=== PATIENT | female | born 1985 | race African-American/Black ===

== ENCOUNTER 2019-03-29 21:14 | Emergency (ER) | payer SELFPAY ==
[~2019-03-29] VITALS: Ht 154.9 cm; Wt 63.5 kg
--- NOTE | 2019-03-29 21:25 | NUR ---
PT MICHELLE BLS. TAKEN TO BED 6
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
[2019-03-29 21:45] VITALS: BP 137/99
--- NOTE | 2019-03-29 21:50 | NUR ---
PHLEB AT BEDSIDE FOR LAB DRAW.
--- NOTE | 2019-03-29 21:52 | NUR ---
Dr. Guidry examining patient.
[2019-03-29 22:10] LABS: BASOPHILS % (AUTO) 0.5 % (0.0-2.0); EOSINOPHILS # (AUTO) 0.1 K/uL (0-0.4); EOSINOPHILS % (AUTO) 1.4 % (0.0-4.0); HEMATOCRIT 40.1 % (36-48); HEMOGLOBIN 13.3 g/dL (12.0-16.0); LYMPHOCYTES # (AUTO) 0.8 K/uL (2.5-16.5); MEAN CORPUSCULAR HEMOGLOBIN 29 pg (27-31); MEAN CORPUSCULAR HGB CONC 33 g/dL (33-37); MEAN CORPUSCULAR VOLUME 87.6 fL (80-94); MONOCYTES # (AUTO) 0.3 K/uL (0.8-1.0); MONOCYTES % (AUTO) 2.8 % (1.7-9.3); NEUTROPHILS % (AUTO) 86.3 % (42.2-75.2); PLATELET COUNT (AUTO) 271 K/uL (140-450); RED BLOOD CELL COUNT(AUTO) 4.57 MIL/uL (4.20-5.40); RED CELL DISTRIBUTION WIDTH 13.9 % (11.6-13.7); WHITE BLOOD COUNT (AUTO) 9.3 K/uL (4.8-10.8)
--- NOTE | 2019-03-29 22:27 | NUR ---
X-Ray at bedside.
--- NOTE | 2019-03-29 22:40 | NUR ---
PT LYING IN BED EYES CLOSED. RESPIRATIONS ARE EVEN AND UNLABORED. SKIN IS DRY AND HOT TO TOUCH. PT REPONSIVE TO PAIN STIMULI. VSS. PT DENIES PAIN. BED LOCKED AND IN LOWEST POSITION. SIDE RAIL UP.
[2019-03-29 22:43] LABS: ALBUMIN 3.1 g/dL (3.4-5.0); ASPARTATE AMINOTRANSFERASE 20 U/L (15-37); CARBON DIOXIDE 24.9 mmol/L (21-32); CHLORIDE 103 mmol/L (98-107); CREATININE 0.7 mg/dL (0.6-1.3); GFR ARICAN-AMERICAN 124 mL/min (>90); GLUCOSE 110 mg/dL (74-106); POTASSIUM 3.9 mmol/L (3.5-5.1); SODIUM SERUM 136 mmol/L (136-145); TOTAL BILIRUBIN 0.5 mg/dL (0.0-1.0); UREA NITROGEN, BLOOD 15 mg/dL (7-18)
[2019-03-29 22:49] LABS: APPEARANCE,URINE CLEAR (CLEAR); BILIRUBIN,URINE NEGATIVE (NEGATIVE); BLOOD, URINE NEGATIVE (NEGATIVE); COLOR,URINE YELLOW (YELLOW); LEUKOCYTE ESTERASE ,URINE TRACE (NEGATIVE); NITRITE, URINE NEGATIVE (NEGATIVE); UGLUCOSE NEGATIVE (NEGATIVE)
[2019-03-29 22:52] LABS: ACETAMINOPHEN < 0.5 ug/ml (10-30); SALICYLATE < 2.8 mg/dL (2.8-20.0)
[2019-03-29 22:56] LABS: BARBITURATE, URINE NEG. ng/ml (NEG <=200); BENZODIAZEPINE, URINE NEG. ng/mL (NEG <=200); CANNABINOID, URINE NEG. ng/mL (NEG <=50); COCAINE, URINE NEG. ng/mL (NEG <=300); OPIATE, URINE NEG. ng/mL (NEG <=2000); PHENCYCLIDINE SCREEN,URINE NEG. ng/mL (NEG <=25)
[2019-03-29 23:05] LABS: RBC,URINE 0-5 /HPF (0-5)
[2019-03-29 23:27] LABS: CKMB RELATIVE INDEX 0.6 (0.0-2.5); CREATINE KINASE MB 1.6 ng/mL (0-3.6)
--- NOTE | 2019-03-29 23:50 | NUR ---
PT RESTING IN BED EYES CLOSED. RESPIRATIONS ARE EVEN AND UNLABORED. SKIN IS DRY AND HOT TO TOUCH. COOLING MEASURES IN PLACE. PT TEMP: 100.7. DR LUCIO MADE AWARE. PT RESPOSNDS TO VERBAL STIMULI. PT DENIES PAIN AT THIS TIME. WILL CONTINUE TO MONITOR. BED LOCKED AND IN LOWEST POSITION.
--- NOTE | 2019-03-30 01:50 | NUR ---
PT LYING IN BED EYES CLOSED. RESPIRATIONS ARE EVEN AND UNLABORED. SKIN IS DRY AND WARM TO TOUCH. COOLING MEASURES IN PLACE. PT TEMP: 100.2. PT REPONSIVE TO VERBAL STIMULI. PT HAS 0/10 PAIN. WILL CONTINUE TO MONITOR. BED LOCKED AND IN LOWEST POSITION.
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
[2019-03-30 03:47] VITALS: BP 138/87
== END 2019-03-30 03:45 | disposition home or self-care (01) ==
LOC: MED 21:14
DX: R55 Syncope and collapse (principal); F15.10 Other stimulant abuse, uncomplicated; N39.0 Urinary tract infection, site not specified
CPT/HCPCS: 36415; 71045; 80053; 80305; 81001; 81025; 82550; 82553; 84484; 85025; 87086; 99284; G0480; G0482; Q0092